=== PATIENT | male | born 1930 | race African-American/Black ===

== ENCOUNTER → 2017-03-24 | Outpatient (CLI) | payer MEDICARE ==
[2017-03-24 10:36] LABS: ANION GAP 7 (5-19); BLOOD UREA NITROGEN 15 mg/dL (7-20); CARBON DIOXIDE 29 mmol/L (22-30); CHLORIDE 103 mmol/L (98-107); CHOLESTEROL 166.94 mg/dL (0-200); CREATININE RESULT 0.91 mg/dL (0.52-1.25); Direct HDL 76 mg/dL (>40); GLUCOSE 83 mg/dL (75-110); POTASSIUM 4.6 mmol/L (3.6-5.0); SODIUM 139.4 mmol/L (137-145); TRIGLYCERIDES 57 mg/dL (<150)
[2017-03-24 10:47] LABS: DIRECT LDL 71 mg/dL (<100)
== END ==
LOC: OD 09:11
PROVIDERS: ATTEND Family Medicine
DX: I10 Essential (primary) hypertension (principal); R00.2 Palpitations; R97.20 Elevated prostate specific antigen [PSA]; Z79.899 Other long term (current) drug therapy
CPT/HCPCS: 36415; 80048; 80061; 83036; 84153; 84443

== ENCOUNTER → 2017-04-19 | Outpatient (CLI) | payer MEDICARE ==
--- NOTE | 2017-04-19 14:26 | RADIOLOGY REPORT (SQ) ---
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 RADIONUCLIDE AND DOSE: 20 millicuries Tc99m MDP. The route of agent administration: Intravenous. ADDITIONAL DRUGS AND DOSES: None. TECHNIQUE: Routine delayed images at 3 hours post radionuclide injection acquired of the bony skelet on including anterior and posterior whole-body projections and additional focused images as needed. LIMITATIONS: None. FINDINGS: BONES: A right knee arthroplasty is present. There is mild uptake in medial compartment o f the left knee that is degenerative. No lesions are seen in the skeleton that are suspicious for me tastases. KIDNEYS: Symmetric excretion without obstruction. OTHER: No other significant finding. IMPRESSION: There is no evidence of metastatic disease to bone. COMMENT: PQRS 3570F: Current bone scan is compared with any available plain radiographs, prior bone scans, and CT/MRI. TECHNICAL DOCUMENTATION: JOB ID: [id number]- All Rights Reserved
== END ==
LOC: RAD 10:00
PROVIDERS: ATTEND Urology
DX: C61 Malignant neoplasm of prostate (principal); N40.1 Benign prostatic hyperplasia with lower urinary tract symptoms; N39.41 Urge incontinence; R97.20 Elevated prostate specific antigen [PSA]
CPT/HCPCS: 78306; A9561; Q9969

== ENCOUNTER → 2017-08-25 | Outpatient (CLI) | payer MEDICARE ==
--- NOTE | 2017-08-25 11:45 | RADIOLOGY REPORT (SQ) ---
EXAM DESCRIPTION: L SPINE WHOLE COMPLETED DATE/TIME: 08/25/2017 11:01 am REASON FOR STUDY: LOW BACK PAIN (M54.5), PROSTATE CA (C61) C61 MALIGNANT NEOPLASM OF PROSTATE M54.5 LOW BACK PAIN COMPARISON: 05/04/2013 NUMBER OF VIEWS: Five views including obliques. TECHNIQUE: AP, lateral, oblique, and sacral radiographic images acquired of the lumbar spine. LIMITATIONS: None. FINDINGS: MINERALIZATION: Normal. SEGMENTATION: Normal. No transitional anatomy. ALIGNMENT: There is minimal, stable anterolisthesis of L4 on L5. VERTEBRAE: Maintained height. No fracture or worrisome bone lesion. DISCS: There is narrowing at L4-5. POSTERIOR ELEMENTS: Hypertrophic facet changes are present from L3-S1. HARDWARE: None in the spine. PARASPINAL SOFT TISSUES: Normal. PELVIS: Intact as visualized. No fractures or worrisome bone lesions. SI joints intact. OTHER: Bridging osteophytes is seen the lower thoracic spine. IMPRESSION: Mild grade 1 anterolisthesis of L4 on L5 that is stable. Degenerative disc disease. Sp ondylosis. Facet arthropathy TECHNICAL DOCUMENTATION: JOB ID: [id number] [employer]- All Rights Reserved
== END ==
LOC: RAD 10:29
PROVIDERS: ATTEND Family Medicine
DX: C61 Malignant neoplasm of prostate (principal); M54.5 Low back pain; M51.36 Other intervertebral disc degeneration, lumbar region; M47.896 Other spondylosis, lumbar region
CPT/HCPCS: 72110

== ENCOUNTER → 2017-11-08 | Outpatient (CLI) | payer MEDICARE, MEDICAID ==
--- NOTE | 2017-11-08 18:07 | RADIOLOGY REPORT (SQ) ---
EXAM DESCRIPTION: HIP BILATERAL COMPLETED DATE/TIME: 11/08/2017 5:44 pm REASON FOR STUDY: Pain in right hip, Lumbago with sciatica, right side COMPARISON: None. NUMBER OF VIEWS: Two views TECHNIQUE: AP pelvis and additional frog-leg view of both hips. LIMITATIONS: None. FINDINGS: MINERALIZATION: Normal. HIPS: Mild osteoarthritis. No acute fracture or dislocation. No worrisome bone lesions. PELVIS AND SACRUM: No acute fracture or dislocation. No worrisome bone lesions. PUBIS AND ISCHIUM: No acute fracture. LOWER LUMBAR SPINE: Degenerative change without fracture. SOFT TISSUES: No findings. OTHER: No other significant finding. IMPRESSION: DEGENERATIVE CHANGE WITHOUT FRACTURE. TECHNICAL DOCUMENTATION: JOB ID: [id number] [employer]- All Rights Reserved
== END ==
LOC: RAD 17:19
PROVIDERS: ATTEND Family Medicine
DX: M25.551 Pain in right hip (principal); M54.41 Lumbago with sciatica, right side
CPT/HCPCS: 73522

== ENCOUNTER 2017-12-14 14:51 | Inpatient (IN) | payer MEDICARE, MEDICAID ==
[2017-12-14 15:33] LABS: ALANINE AMINOTRANSFERASE 55 U/L (21-72); ALBUMIN 2.7 g/dL (3.5-5.0); ALKALINE PHOSPHATASE 170 U/L (38-126); ANION GAP 8 (5-19); ASPARTATE AMINO TRANSFERASE 85 U/L (17-59); BILIRUBIN,DIRECT 0.2 mg/dL (0.0-0.4); BILIRUBIN,TOTAL 0.2 mg/dL (0.2-1.3); BLOOD UREA NITROGEN 15 mg/dL (7-20); CALCIUM 8.6 mg/dL (8.4-10.2); CARBON DIOXIDE 27 mmol/L (22-30); CHLORIDE 104 mmol/L (98-107); CREATINE KINASE 95 U/L (55-170); GLUCOSE 110 mg/dL (75-110); POTASSIUM 3.7 mmol/L (3.6-5.0); TOTAL PROTEIN 5.9 g/dL (6.3-8.2)
--- NOTE | 2017-12-14 15:35 | ER Document Report ---
ED General - General Mode of Arrival: Medic Information source: Patient, Relative TRAVEL OUTSIDE OF THE [place] IN LAST 30 DAYS: No <COLBY STALEY - Last Filed: 12/14/17 22:19> <JOVANNA GUZMAN - Last Filed: 12/19/17 06:57> - General Chief Complaint: Syncope Stated Complaint: SYNCOPE Time Seen by Provider: 12/14/17 15:15 Notes: Patient is a 87 year old male with a history of hypertension presents to the emergency department via EMS accompanied by son due to a syncopal episode. Son states the patient was receiving a hair cut when he had a syncopal episode further stating the patient slumped over in the chair. Patient denies any light headedness, nausea, diaphoresis, chest pain, heart palpitations or shortness of breath before the syncopal episode. Son states the patient had a syncopal episode one time before. At bedside, son states the patient appears groggy. Patient denies a history of stroke, [place] or seizures. Son states the patient took his hypertension medications this morning. (COLBY STALEY) - Related Data Allergies/Adverse Reactions: No Known Drug Allergies Allergy (Verified 09/01/14 12:58) Past Medical History - General Information source: Patient, Relative - Social History Smoking Status: Unknown if Ever Smoked Family History: Hypertension - Past Medical History Cardiac Medical History: Reports: Hx Hypertension - Immunizations Hx Diphtheria, Pertussis, Tetanus Vaccination: No - unknown <COLBY STALEY - Last Filed: 12/14/17 22:19> Review of Systems - Review of Systems Constitutional: No symptoms reported EENT: No symptoms reported Cardiovascular: No symptoms reported Respiratory: No symptoms reported Gastrointestinal: No symptoms reported Genitourinary: No symptoms reported Male Genitourinary: No symptoms reported Musculoskeletal: No symptoms reported Skin: No symptoms reported Hematologic/Lymphatic: No symptoms reported Neurological/Psychological: See HPI, Lost consciousness -: Yes All other systems reviewed and negative <COLBY STALEY - Last Filed: 12/14/17 22:19> Physical Exam <COLBY STALEY - Last Filed: 12/14/17 22:19> <JOVANNA GUZMAN - Last Filed: 12/19/17 06:57> - Vital signs Vitals: Pulse Ox 97 12/14/17 15:10 - Notes Notes: GENERAL: Alert, appears fatigued. HEAD: Normocephalic, atraumatic. EYES: Pupils equal, round, and reactive to light. Extraocular movements intact. ENT: Oral mucosa moist, tongue midline. NECK: Full range of motion. Supple. Trachea midline. LUNGS: Clear to auscultation bilaterally, no wheezes, rales, or rhonchi. No respiratory distress. HEART: Systolic murmur. No gallops or rubs. ABDOMEN: Soft, non-tender. Non-distended. Bowel sounds present in all 4 quadrants. EXTREMITIES: Moves all 4 extremities spontaneously. 2+ radial pulses. NEUROLOGICAL: Alert and oriented x3. Normal speech. PSYCH: Normal affect, normal mood. SKIN: Warm, dry, normal turgor. No rashes or lesions noted. RECTAL: Brown stool. (COLBY STALEY) Course - Laboratory Result Diagrams: 12/14/17 14:31 12/14/17 14:31 - Consults Dr. Galarza Time consulted: 18:11 - Accepts patient for admission. <COLBY STALEY - Last Filed: 12/14/17 22:19> - Laboratory Result Diagrams: 12/19/17 04:59 12/18/17 05:41 - EKG Interpretation by Pr EKG shows normal: Sinus rhythm Rate: Normal Rhythm: NSR [place]/QRS: RBBB When compared to previous EKG there are: No significant change <JOVANNA GUZMAN - Last Filed: 12/19/17 06:57> - Vital Signs Vital signs: Temp Pulse Resp BP Pulse Ox 98.6 F 80 18 141/81 H 93 12/19/17 04:04 12/19/17 04:04 12/19/17 04:04 12/19/17 04:04 12/19/17 04:04 - Laboratory Laboratory results interpreted by ar: 12/14/17 12/14/17 12/14/17 14:31 14:31 14:31 RBC 4.14 L Hgb 6.7 L Hct 23.6 L MCV 57 L MCH 16.1 L MCHC 28.2 L RDW 21.1 H Plt Count 531 H Seg Neuts % (Manual) 79 H Lymphocytes % (Manual) 10 L Iron < 10.1 L Ferritin 5.30 L AST 85 H Alkaline Phosphatase 170 H Total Protein 5.9 L Albumin 2.7 L Vitamin B12 > 1000.0 H Crossmatch 12/14/17 17:09 RBC Hgb Hct MCV MCH MCHC RDW Plt Count Seg Neuts % (Manual) Lymphocytes % (Manual) Iron Ferritin AST Alkaline Phosphatase Total Protein Albumin Vitamin B12 Crossmatch See Detail Discharge - Discharge Admitting Provider: [facility] Admitted: Telemetry <COLBY STALEY - Last Filed: 12/14/17 22:19> <JOVANNA GUZMAN - Last Filed: 12/19/17 06:57> - Discharge Clinical Impression: Syncope Qualifiers: Syncope type: unspecified Qualified Code(s): R55 - Syncope and collapse Anemia Qualifiers: Anemia type: iron deficiency Iron deficiency anemia type: unspecified iron deficiency Qualified Code(s): D50.9 - Iron deficiency anemia, unspecified Condition: Stable Disposition: ADMITTED INPATIENT Scribe Attestation: 12/19/17 06:57 I personally performed the services described in the documentation, reviewed and edited the documentation which was dictated to the scribe in my presence, and it accurately records my words and actions. (JOVANNA GUZMAN) Scribe Documentation - Scribe Written by Giuliana:: Giuliana Perez, 12/14/2017 15:52 acting as scribe for :: Jimbo <COLBY STALEY - Last Filed: 12/14/17 22:19>
[2017-12-14 15:36] LABS: HEMATOCRIT 23.6 % (37.9-51.0); MEAN CORPUSCULAR HEMOGLOBIN 16.1 pg (27.0-33.4); MEAN CORPUSCULAR HGB CONC 28.2 g/dL (32.0-36.0); PLATELET COUNT 531 10^3/uL (150-450); RED BLOOD COUNT 4.14 10^6/uL (4.35-5.55); RED CELL DISTRIBUTION WIDTH 21.1 % (11.5-14.0)
[2017-12-14 15:44] LABS: HEMOGLOBIN 6.7 g/dL (13.5-17.0)
[2017-12-14 15:45] LABS: CREATINE KINASE MB 0.97 ng/mL (<4.55); MEAN CORPUSCULAR VOLUME 57 fl (80-97)
[2017-12-14 15:46] LABS: TROPONIN I < 0.012 ng/mL
[2017-12-14 15:53] LABS: ABSOLUTE NEUTROPHILS# (MANUAL) 7.9 10^3/uL (1.7-8.2); ANISOCYTOSIS 2+; BASOPHILS % (MANUAL) 1 % (0-2); EOSINOPHILS % (MANUAL) 0 % (0-6); HYPOCHROMASIA 2+; LYMPHOCYTES % (MANUAL) 10 % (13-45); MONOCYTES % (MANUAL) 10 % (3-13); PLATELET COMMENT INCREASED; PLATELET LARGE PRESENT; POLYCHROMASIA SLIGHT; ROULEAUX SLIGHT; SEGMENTED NEUTROPHILS % (MAN) 79 % (42-78); TARGET CELLS SLIGHT; TOTAL CELLS COUNTED 100
[2017-12-14 16:36] LABS: ABSOLUTE RETICS # 0.071 10^6/uL (0.028-0.122); RETICULOCYTE COUNT (AUTO) 1.69 % (0.66-2.85)
--- NOTE | 2017-12-14 16:49 | RADIOLOGY REPORT (SQ) ---
EXAM DESCRIPTION: CT HEAD WITHOUT COMPLETED DATE/TIME: 12/14/2017 4:35 pm REASON FOR STUDY: SYNCOPE COMPARISON: 08/19/2016 TECHNIQUE: Axial images acquired through the brain without intravenous contrast. Images reviewed wi th bone, brain and subdural windows. Additional sagittal and coronal reconstructions were generated. Images stored on PACS. All CT scanners at this facility use dose modulation, iterative reconstruction, and/or weight based d osing when appropriate to reduce radiation dose to as low as reasonably achievable (ALARA). [facility]: Dose Right [facility]: CareDose [facility]: Dose Right [facility]: Teradose 4D [facility]: Smart Symphony RADIATION DOSE: CT Rad equipment meets quality standard of care and radiation dose reduction techniq ues were employed. CTDIvol: 53.2 mGy. DLP: 937 mGy-cm. mGy. LIMITATIONS: None. FINDINGS: VENTRICLES: Prominent ventricles secondary to involutional atrophy. CEREBRUM: Mild cortical atrophy. No masses. No hemorrhage. No midline shift. No evidence for acut e infarction. Few scattered areas of low density in the white matter most likely chronic small vessel ischemic changes. CEREBELLUM: No masses. No hemorrhage. No alteration of density. No evidence for acute infarction. EXTRAAXIAL SPACES: No fluid collections. No masses. ORBITS AND GLOBE: No intra- or extraconal masses. Normal contour of globe without masses. CALVARIUM: No fracture. PARANASAL SINUSES: No fluid or mucosal thickening. SOFT TISSUES: No mass or hematoma. OTHER: No other significant finding. IMPRESSION: MILD CHRONIC MICROVASCULAR ISCHEMIA. NO ACUTE IMAGING FINDINGS IN THE BRAIN. EVIDENCE OF ACUTE STROKE: NO. COMMENT: Quality ID # [id number]: Final reports with documentation of one or more dose reduction techniques (e.g., Automated exposure control, adjustment of the mA and/or kV according to patient size, use of iterative reconstruction technique) TECHNICAL DOCUMENTATION: JOB ID: [id number] [employer]- All Rights Reserved Reading location - IP/workstation name: [email or web address]
[2017-12-14 17:28] LABS: FOLATE 5.96 ng/mL (>2.76)
[2017-12-14 17:38] LABS: IRON(TIBC) < 10.1 ug/dL (49-181)
[2017-12-14] MEDS ORDERED: OXYCODONE-ACETAMINOPHEN 5-325 MG TABLET PO PRN ×2 (18:14→18:39)
[2017-12-14] MEDS ORDERED: ACETAMINOPHEN 325 MG TABLET PO PRN ×2 (18:14→18:39)
[2017-12-14] MEDS ORDERED: ONDANSETRON HCL INJ/PF 4 MG/2 ML SDV IV PRN (18:14)
[2017-12-14] MEDS ORDERED: NORMAL SALINE 250 ML IV PRN ×2 (18:36)
--- NOTE | 2017-12-14 18:55 | PDOC H&P ---
History of Present Illness Admission Date/PCP: CARMINE GODFREY MD Patient complains of: Syncopal episode while getting haircut History of Present Illness: MOI SANCHEZ JR is a 87 year old male Patient was brought to the emergency room by his son apparently after having a syncopal episode while he was at the [facility]. Patient denies any dizziness nausea vomiting diaphoresis chest pain palpitations or any other pertinent symptoms patient and his son a pretty poor historians and I am unable to really get meaningful information from them. They denied any known history of a prior anemia and denies any known history of GI malignancy. He apparently does have a history of prostate cancer however from what they tell me he is not been treated. He also had a colonoscopy about 4 years ago and they tell me that it was negative. There is no history of bloody stool, abdominal pain, weight loss , vomiting blood or any other pertinent symptoms. Patient was found to have a hemoglobin of 6.7 in the emergency room and stool guaiac done was negative. His iron studies less than 10 while his ferritin is also low. Also has some significant disease with MCV of 57. Platelet count is at 531 which was suggest iron deficiency anemia Past Medical History Cardiac Medical History: Reports: Hypertension Pulmonary Medical History: Denies: Tuberculosis Past Surgical History Past Surgical History: Denies: Pacemaker Social History Information Source: Patient Smoking Status: Unknown if Ever Smoked Frequency of Alcohol Use: None Hx Recreational Drug Use: No Hx Prescription Drug Abuse: No Family History Family History: Hypertension Parental Family History Reviewed: No Children Family History Reviewed: Unknown Sibling(s) Family History Reviewed.: Unknown Medication/Allergy Home Medications: Lisinopril [Prinivil 20 mg Tablet] 20 mg PO Q12 09/20/12 Donepezil HCl 5 mg PO DAILY 08/31/14 Hydrocodone/Ibuprofen [Reprexain 7.5-200 Mg Tablet] 1 each PO TID PRN 08/31/14 Ergocalciferol (Vitamin D2) [Drisdol] 50,000 unit PO [id number] 09/06/14 Vit B12/Lm-Folate Ca/Vit B6/B2 [Enfolast Tablet] 1 each PO BID 09/06/14 Diltiazem HCl [Cardizem 60 mg Tablet] 60 mg PO Q8 #0 tablet 09/10/14 Hydralazine HCl [Apresoline 50 mg Tablet] 50 mg PO Q8 #0 tablet 09/10/14 Metoprolol Succinate [Toprol Xl] 25 mg PO BID #0 09/10/14 Nitrofurantoin/Nitrofuran Mac [Macrobid 100 mg Capsule] 100 mg PO BID #20 capsule 08/19/16 Allergies/Adverse Reactions: No Known Drug Allergies Allergy (Verified 09/01/14 12:58) Review of Systems All systems: reviewed and no additional remarkable complaints except as stated Cardiovascular: ABSENT: chest pain, orthropnea, palpitations Gastrointestinal: ABSENT: abdominal pain, coffee ground emesis, diarrhea, hematemesis, hematochezia, melena, nausea, vomiting Physical Exam Vital Signs: Temp Pulse Resp BP Pulse Ox 115/62 96 12/14/17 16:00 12/14/17 16:01 General appearance: PRESENT: no acute distress, other - elderly and frail Head exam: PRESENT: atraumatic Eye exam: PRESENT: other - pale Ear exam: PRESENT: normal external ear exam Neck exam: ABSENT: carotid bruit, JVD, lymphadenopathy, thyromegaly Cardiovascular exam: PRESENT: RRR. ABSENT: diastolic murmur, rubs, systolic murmur Pulses: PRESENT: normal dorsalis pedis pul GI/Abdominal exam: PRESENT: normal bowel sounds, soft. ABSENT: distended, guarding, mass, organolmegaly, rebound, tenderness Rectal exam: PRESENT: heme (-) stool Extremities exam: PRESENT: full ROM. ABSENT: calf tenderness, clubbing, pedal edema Musculoskeletal exam: PRESENT: ambulatory - with walker Neurological exam: PRESENT: alert, awake, oriented to person, oriented to place , oriented to time Psychiatric exam: PRESENT: flat affect Results Laboratory Results: 12/14/17 14:31 12/14/17 14:31 12/14/17 12/14/17 12/14/17 14:31 14:31 14:31 WBC 10.0 RBC 4.14 L Hgb 6.7 L Hct 23.6 L MCV 57 L MCH 16.1 L MCHC 28.2 L RDW 21.1 H Plt Count 531 H Seg Neutrophils % Not Reportable Lymphocytes % Not Reportable Monocytes % Not Reportable Eosinophils % Not Reportable Basophils % Not Reportable Absolute Neutrophils Not Reportable Absolute Lymphocytes Not Reportable Absolute Monocytes Not Reportable Absolute Eosinophils Not Reportable Absolute Basophils Not Reportable Retic Count (auto) Absolute Retic Sodium 139.0 Potassium 3.7 Chloride 104 Carbon Dioxide 27 Anion Gap 8 BUN 15 Creatinine 0.80 Est GFR ( Amer) > 60 Est GFR (Non-Af Amer) > 60 Glucose 110 Calcium 8.6 Magnesium 1.8 Iron TIBC % Saturation Ferritin Total Bilirubin 0.2 AST 85 H ALT 55 Alkaline Phosphatase 170 H Total Protein 5.9 L Albumin 2.7 L Vitamin B12 Folate Stool Occult Blood Blood Type Antibody Screen 12/14/17 12/14/17 12/14/17 14:31 14:31 16:10 WBC RBC Hgb Hct MCV MCH MCHC RDW Plt Count Seg Neutrophils % Lymphocytes % Monocytes % Eosinophils % Basophils % Absolute Neutrophils Absolute Lymphocytes Absolute Monocytes Absolute Eosinophils Absolute Basophils Retic Count (auto) 1.69 Absolute Retic 0.071 Sodium Potassium Chloride Carbon Dioxide Anion Gap BUN Creatinine Est GFR ( Amer) Est GFR (Non-Af Amer) Glucose Calcium Magnesium Iron < 10.1 L TIBC 257 % Saturation UNABLE TO CALCULATE Ferritin 5.30 L Total Bilirubin AST ALT Alkaline Phosphatase Total Protein Albumin Vitamin B12 > 1000.0 H Folate 5.96 Stool Occult Blood NEGATIVE Blood Type Antibody Screen 12/14/17 17:09 WBC RBC Hgb Hct MCV MCH MCHC RDW Plt Count Seg Neutrophils % Lymphocytes % Monocytes % Eosinophils % Basophils % Absolute Neutrophils Absolute Lymphocytes Absolute Monocytes Absolute Eosinophils Absolute Basophils Retic Count (auto) Absolute Retic Sodium Potassium Chloride Carbon Dioxide Anion Gap BUN Creatinine Est GFR ( Amer) Est GFR (Non-Af Amer) Glucose Calcium Magnesium Iron TIBC % Saturation Ferritin Total Bilirubin AST ALT Alkaline Phosphatase Total Protein Albumin Vitamin B12 Folate Stool Occult Blood Blood Type A POSITIVE Antibody Screen NEGATIVE 12/14/17 12/14/17 14:31 14:31 Creatine Kinase 95 CK-MB (CK-2) 0.97 Troponin I < 0.012 Impressions: Head CT 12/14/17 15:34 IMPRESSION: MILD CHRONIC MICROVASCULAR ISCHEMIA. NO ACUTE IMAGING FINDINGS IN THE BRAIN. EVIDENCE OF ACUTE STROKE: NO. Assessment & Plan - Diagnosis (1) Anemia Qualifiers: Anemia type: unspecified type Qualified Code(s): D64.9 - Anemia, unspecified Is this a current diagnosis for this admission?: Yes Plan: This is likely a chronic anemia given his indices and severe iron deficiency. Plan is to transfuse him with 2 units PRBC. Will likely need further studies including CT abdomen and pelvis and GI consult if warranted however will defer these for now and can reeval in am. He will also need Iron transfusion at one point. Patient also has h/o Prostrate Cancer so this may be related to the severe anemia There is also no azotemia supporting the fact that this is likely chronic. Reactive thrombocytosis also support this. Patient's last hemoglobin in the computer records was in 2016 at that time his hemoglobin was 12 (2) Syncope Qualifiers: Syncope type: unspecified Qualified Code(s): R55 - Syncope and collapse Is this a current diagnosis for this admission?: Yes Plan: This is secondary to the severe anemia. At this point I see no indication for any further cardiac workup as his syncope can be explained by the anemia. Will defer ordering any other test for now (3) Dementia Qualifiers: Dementia type: Alzheimer's disease Is this a current diagnosis for this admission?: Yes - Time Time Spent: 30 to 50 Minutes Medications reviewed and adjusted accordingly: Yes Anticipated discharge: Home Within: within 48 hours - Inpatient Certification Based on my medical assessment, after consideration of the patient's comorbidities, presenting symptoms, or acuity I expect that the services needed warrant INPATIENT care.: Yes Medical Necessity: Other - Need for blood transfusion
--- NOTE | 2017-12-14 19:22 | EKG REPORT ---
SEVERITY:- ABNORMAL ECG - SINUS RHYTHM RIGHT BUNDLE BRANCH BLOCK : Confirmed by: Tramaine Ohara MD 14-Dec-2017 19:21:47
[2017-12-14] MEDS: FAMOTIDINE INJ/PF 20 MG/2 ML SDV IV SCH (23:18)
[2017-12-15 07:05] LABS: HEMATOCRIT 27.9 % (37.9-51.0); HEMOGLOBIN 8.5 g/dL (13.5-17.0); MEAN CORPUSCULAR HEMOGLOBIN 18.8 pg (27.0-33.4); MEAN CORPUSCULAR HGB CONC 30.4 g/dL (32.0-36.0); PLATELET COUNT 404 10^3/uL (150-450); RED BLOOD COUNT 4.51 10^6/uL (4.35-5.55); RED CELL DISTRIBUTION WIDTH 28.3 % (11.5-14.0)
[2017-12-15 07:11] LABS: BLOOD UREA NITROGEN 15 mg/dL (7-20); CALCIUM 8.5 mg/dL (8.4-10.2); CHLORIDE 104 mmol/L (98-107); GLUCOSE 79 mg/dL (75-110)
[2017-12-15 07:25] LABS: ANION GAP 5 (5-19); CARBON DIOXIDE 30 mmol/L (22-30); POTASSIUM 3.5 mmol/L (3.6-5.0); SODIUM 138.5 mmol/L (137-145)
[2017-12-15 07:45] LABS: MEAN CORPUSCULAR VOLUME 62 fl (80-97)
[2017-12-15 07:47] LABS: ABSOLUTE MONOCYTES # (MANUAL) 1.4 10^3/uL (0.1-1.4); ABSOLUTE NEUTROPHILS# (MANUAL) 8.6 10^3/uL (1.7-8.2); BASOPHILS % (MANUAL) 0 % (0-2); EOSINOPHILS % (MANUAL) 0 % (0-6); LYMPHOCYTES % (MANUAL) 9 % (13-45); MONOCYTES % (MANUAL) 13 % (3-13); SEGMENTED NEUTROPHILS % (MAN) 78 % (42-78); TOTAL CELLS COUNTED 100
[2017-12-15 07:48] LABS: HYPOCHROMASIA 3+; POLYCHROMASIA SLIGHT; TOXIC VACUOLATION PRESENT
[2017-12-15 07:49] LABS: ANISOCYTOSIS 3+; PLATELET COMMENT ADEQUATE; SCHISTOCYTES SLIGHT; TARGET CELLS 1+
[2017-12-15] MEDS: FAMOTIDINE INJ/PF 20 MG/2 ML SDV IV SCH ×2 (09:37→22:51)
[2017-12-15 10:14] LABS: PATH REVIEW PATHOLOGIST REVIEWED
--- NOTE | 2017-12-15 17:03 | PDOC PROGRESS REPORT ---
Subjective Progress Note for:: 12/15/17 Subjective:: Feeling better today, no to diet. No chest pain or shortness of breath or palpitations. Son at bedside. States he has prostate cancer and undergone a workup, including abdomen and pelvis CT. Patient has intermittent problems with constipation. Reason For Visit: SYNCOPE ANEMIA Physical Exam Vital Signs: Temp Pulse Resp BP Pulse Ox 99.0 F 66 19 153/89 H 95 12/15/17 16:23 12/15/17 16:23 12/15/17 16:23 12/15/17 16:23 12/15/17 16:23 Intake & Output 12/14/17 12/15/17 12/16/17 06:59 06:59 06:59 Intake Total 650 739 Balance 650 739 Weight 34.2 kg 42.4 kg GEN: NAD, well-developed, well-nourished CV: RRR, NL S1S2 LUNGS: CTA bilaterally ABDOMEN Soft, NT, +BS EXTERMITIES: No e/c/c NEURO: Alert, oriented 3, no lateralizing weakness Results Laboratory Results: 12/15/17 06:36 12/15/17 06:36 12/15/17 12/15/17 06:36 06:36 WBC 11.0 H RBC 4.51 Hgb 8.5 L Hct 27.9 L MCV 62 L D MCH 18.8 L MCHC 30.4 L RDW 28.3 H Plt Count 404 Seg Neutrophils % Not Reportable Lymphocytes % Not Reportable Monocytes % Not Reportable Eosinophils % Not Reportable Basophils % Not Reportable Absolute Neutrophils Not Reportable Absolute Lymphocytes Not Reportable Absolute Monocytes Not Reportable Absolute Eosinophils Not Reportable Absolute Basophils Not Reportable Sodium 138.5 Potassium 3.5 L Chloride 104 Carbon Dioxide 30 Anion Gap 5 BUN 15 Creatinine 0.59 Est GFR ( Amer) > 60 Est GFR (Non-Af Amer) > 60 Glucose 79 Calcium 8.5 Impressions: Head CT 12/14/17 15:34 IMPRESSION: MILD CHRONIC MICROVASCULAR ISCHEMIA. NO ACUTE IMAGING FINDINGS IN THE BRAIN. EVIDENCE OF ACUTE STROKE: NO. Assessment & Plan - Diagnosis (1) Anemia Qualifiers: Anemia type: unspecified type Qualified Code(s): D64.9 - Anemia, unspecified Is this a current diagnosis for this admission?: Yes Plan: Assessment this is secondary to iron deficiency and/or chronic disease. H&H improved with 2 units packed red blood cells. We will follow-up CBC in a.m. Patient reports never having had colonoscopy. He will need GI evaluation. No GI availability inpatient at this time. Will check abdominal pelvic CT to rule out metastatic lesion, given history of prostate cancer. (2) Syncope Qualifiers: Syncope type: unspecified Qualified Code(s): R55 - Syncope and collapse Is this a current diagnosis for this admission?: Yes Plan: Likely secondary to anemia. Continue to observe. (3) Dementia Qualifiers: Dementia type: Alzheimer's disease Is this a current diagnosis for this admission?: Yes Plan: Appears mild to moderate, stable.
[2017-12-15] MEDS ORDERED: DONEPEZIL HCL 5 MG TABLET PO ONE (18:15)
--- NOTE | 2017-12-15 20:47 | RADIOLOGY REPORT (SQ) ---
EXAM DESCRIPTION: CT ABD/PELVIS WITH IV ORAL COMPLETED DATE/TIME: 12/15/2017 8:29 pm REASON FOR STUDY: Severe anemia, abd pain, h/o prostate CA COMPARISON: None. TECHNIQUE: CT scan of the abdomen and pelvis performed using helical scanning technique with dynamic intravenous contrast injection. Oral contrast. Images reviewed with lung, soft tissue, and bone win dows. Reconstructed coronal and sagittal MPR images reviewed. Delayed images for evaluation of the ur inary system also acquired. All images stored on PACS. All CT scanners at this facility use dose modulation, iterative reconstruction, and/or weight based d osing when appropriate to reduce radiation dose to as low as reasonably achievable (ALARA). [facility]: Dose Right [facility]: CareDose [facility]: Dose Right [facility]: Teradose 4D [facility]: Mobui CONTRAST TYPE AND DOSE: contrast/concentration: Isovue mg/ml; Total Contrast Delivered: 45.0 ml; To zohreh Saline Delivered: 35.0 ml RENAL FUNCTION: BUN 15 creatinine 0.56 RADIATION DOSE: CT Rad equipment meets quality standard of care and radiation dose reduction techniq ues were employed. CTDIvol: 11.4 - 16.0 mGy. DLP: 1475 mGy-cm.. LIMITATIONS: None. FINDINGS: LOWER CHEST: A densely calcified granuloma is present in the right lung. There is a minim al right pleural effusion. LIVER: There is is 13 cm heterogeneous mass involving the right lobe of the liver. A 4 cm low-densit y mass lies anterior to the larger mass. The larger mass actually has an appearance suggesting confl uent smaller masses. SPLEEN: Normal size. No focal lesions. PANCREAS: No masses. No significant calcifications. No adjacent inflammation or peripancreatic fluid collections. Pancreatic duct not dilated. GALLBLADDER: No identified stones by CT criteria. No inflammatory changes to suggest cholecystitis. ADRENAL GLANDS: No significant masses or asymmetry. RIGHT KIDNEY AND URETER: No solid masses. No significant calcifications. No hydronephrosis or hyd roureter. LEFT KIDNEY AND URETER: No solid masses. No significant calcifications. No hydronephrosis or hydr oureter. AORTA AND VESSELS: No aneurysm. No dissection. Renal arteries, SMA, celiac without stenosis. RETROPERITONEUM: There are scattered small mesenteric nodes. BOWEL AND PERITONEAL CAVITY: No bowel mass is appreciated. No free fluid is appreciated. APPENDIX: Not identified. PELVIS: No mass. No free fluid. Normal bladder. ABDOMINAL WALL: There is a left inguinal hernia containing a loop of sigmoid colon. BONES: No significant or acute findings. OTHER: No other significant finding. IMPRESSION: 1. Findings in the lower chest as described. 2. Hepatic masses. 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 3. Small nonspecific mesenteric lymph nodes. 4. Prominent left inguinal hernia containing a loop of sigmoid colon. TECHNICAL DOCUMENTATION: JOB ID: [id number] Quality ID # [id number]: Final reports with documentation of one or more dose reduction techniques (e.g., Au tomated exposure control, adjustment of the mA and/or kV according to patient size, use of iterative reconstruction technique) 2010 [employer]- All Rights Reserved Reading location - IP/workstation name: [email or web address]
[2017-12-16 05:14] LABS: ABSOLUTE EOSINOPHILS # (AUTO) 0.1 10^3/uL (0.0-0.6); ABSOLUTE LYMPHOCYTES (AUTO) 1.1 10^3/uL (0.5-4.7); ABSOLUTE MONOCYTES (AUTO) 2.8 10^3/uL (0.1-1.4); ABSOLUTE NEUT (AUTO) 10.1 10^3/uL (1.7-8.2); BASOPHILS % (AUTO) 0.3 % (0-2); EOSINOPHILS % (AUTO) 0.9 % (0-6); LYMPHOCYTES % (AUTO) 7.5 % (13-45); MEAN CORPUSCULAR HEMOGLOBIN 18.5 pg (27.0-33.4); MEAN CORPUSCULAR HGB CONC 29.6 g/dL (32.0-36.0); MEAN CORPUSCULAR VOLUME 62 fl (80-97); MONOCYTES % (AUTO) 19.9 % (3-13); PLATELET COUNT 385 10^3/uL (150-450); RED BLOOD COUNT 4.34 10^6/uL (4.35-5.55); RED CELL DISTRIBUTION WIDTH 27.9 % (11.5-14.0); SEGMENTED NEUTROPHILS % (AUTO) 71.4 % (42-78); TOTAL CELLS COUNTED % (AUTO) 100 %; WHITE BLOOD COUNT 14.1 10^3/uL (4.0-10.5)
[2017-12-16 05:31] LABS: ALANINE AMINOTRANSFERASE 60 U/L (21-72); ALBUMIN 2.7 g/dL (3.5-5.0); ALKALINE PHOSPHATASE 178 U/L (38-126); ASPARTATE AMINO TRANSFERASE 99 U/L (17-59); BILIRUBIN,DIRECT 0.3 mg/dL (0.0-0.4); BILIRUBIN,TOTAL 0.5 mg/dL (0.2-1.3); BLOOD UREA NITROGEN 10 mg/dL (7-20); CALCIUM 8.3 mg/dL (8.4-10.2); CARBON DIOXIDE 33 mmol/L (22-30); GLUCOSE 77 mg/dL (75-110); POTASSIUM 3.4 mmol/L (3.6-5.0); TOTAL PROTEIN 5.9 g/dL (6.3-8.2)
[2017-12-16 05:36] LABS: CHLORIDE 103 mmol/L (98-107); SODIUM 137.8 mmol/L (137-145)
[2017-12-16 05:37] LABS: ANION GAP 2 (5-19)
[2017-12-16 05:41] LABS: TOXIC GRANULATION SLIGHT
[2017-12-16 05:42] LABS: ANISOCYTOSIS 4+; BURR CELLS SLIGHT; HYPOCHROMASIA 2+; PLATELET CLUMPS PRESENT; PLATELET COMMENT ADEQUATE; POLYCHROMASIA 1+; SCHISTOCYTES SLIGHT; TARGET CELLS 1+
[2017-12-16] MEDS: POLYETHYLENE GLYCOL 3350 POWDER 17 GM/1 PACKET PO SCH ×2 (10:53→10:55)
[2017-12-16] MEDS: FAMOTIDINE INJ/PF 20 MG/2 ML SDV IV SCH ×2 (10:54→21:13)
[2017-12-16] MEDS: FERROUS SULFATE 325 MG TABLET PO SCH ×2 (10:54→17:07)
[2017-12-16] MEDS: DONEPEZIL HCL 5 MG TABLET PO SCH (10:55)
[2017-12-16] MEDS: DOCUSATE SODIUM 100 MG CAPSULE PO SCH ×2 (10:55→17:07)
--- NOTE | 2017-12-16 19:40 | PDOC PROGRESS REPORT ---
Subjective Progress Note for:: 12/16/17 Subjective:: Feeling better today, no recurrent syncope. No chest pain or shortness of breath or palpitations. Son at bedside. Denies rectal bleeding. Has problems with constipation usually. Reason For Visit: SYNCOPE ANEMIA Physical Exam Vital Signs: Temp Pulse Resp BP Pulse Ox 98.5 F 95 12 171/85 H 92 12/16/17 11:27 12/16/17 14:00 12/16/17 11:27 12/16/17 11:27 12/16/17 11:27 Intake & Output 12/15/17 12/16/17 12/17/17 06:59 06:59 06:59 Intake Total 650 741 0 Balance 650 741 0 Weight 34.2 kg 42.4 kg GEN: NAD, well-developed, well-nourished CV: RRR, NL S1S2 LUNGS: CTA bilaterally ABDOMEN Soft, NT, +BS EXTERMITIES: No e/c/c NEURO: Alert, oriented 3, no lateralizing weakness Results Laboratory Results: 12/16/17 04:09 12/16/17 04:09 12/16/17 12/16/17 04:09 04:09 WBC 14.1 H RBC 4.34 L Hgb 8.0 L Hct 27.0 L MCV 62 L MCH 18.5 L MCHC 29.6 L RDW 27.9 H Plt Count 385 Seg Neutrophils % 71.4 Lymphocytes % 7.5 L Monocytes % 19.9 H Eosinophils % 0.9 Basophils % 0.3 Absolute Neutrophils 10.1 H Absolute Lymphocytes 1.1 Absolute Monocytes 2.8 H Absolute Eosinophils 0.1 Absolute Basophils 0.0 Sodium 137.8 Potassium 3.4 L Chloride 103 Carbon Dioxide 33 H Anion Gap 2 L BUN 10 Creatinine 0.57 Est GFR ( Amer) > 60 Est GFR (Non-Af Amer) > 60 Glucose 77 Calcium 8.3 L Total Bilirubin 0.5 AST 99 H ALT 60 Alkaline Phosphatase 178 H Total Protein 5.9 L Albumin 2.7 L Impressions: Head CT 12/14/17 15:34 IMPRESSION: MILD CHRONIC MICROVASCULAR ISCHEMIA. NO ACUTE IMAGING FINDINGS IN THE BRAIN. EVIDENCE OF ACUTE STROKE: NO. Abdomen/Pelvis CT 12/15/17 00:00 IMPRESSION: 1. Findings in the lower chest as described. 2. Hepatic masses. 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 3. Small nonspecific mesenteric lymph nodes. 4. Prominent left inguinal hernia containing a loop of sigmoid colon. Assessment & Plan - Diagnosis (1) Anemia Qualifiers: Anemia type: unspecified type Qualified Code(s): D64.9 - Anemia, unspecified Is this a current diagnosis for this admission?: Yes Plan: Suspect this is secondary to iron deficiency and/or chronic disease. H&H improved with 2 units packed red blood cells, but decreased slightly today. We will continue to trend CBC. Patient reports never having had colonoscopy. Abdominal and pelvic CT result noted--liver lesions described. Will check PSA. Consider oncology consult. (2) Syncope Qualifiers: Syncope type: unspecified Qualified Code(s): R55 - Syncope and collapse Is this a current diagnosis for this admission?: Yes Plan: Likely secondary to anemia. Continue to monitor. (3) Dementia Qualifiers: Dementia type: Alzheimer's disease Is this a current diagnosis for this admission?: Yes Plan: Appears mild to moderate, stable. (4) Hypertension Is this a current diagnosis for this admission?: Yes Plan: BPs running high. Will restart home meds. Continue to monitor. (5) Hypokalemia Is this a current diagnosis for this admission?: Yes Plan: Replete potassium, follow-up Chem-7 level in a.m. - Time Time Spent with patient: 35 or more minutes
[2017-12-16] MEDS ORDERED: TRAZODONE HCL 50 MG TABLET PO ONE (21:00)
[2017-12-16] MEDS: AMLODIPINE BESYLATE 5 MG TABLET PO SCH (21:13)
[2017-12-17 07:11] LABS: HEMOGLOBIN 9.1 g/dL (13.5-17.0); MEAN CORPUSCULAR HEMOGLOBIN 18.3 pg (27.0-33.4); MEAN CORPUSCULAR HGB CONC 29.2 g/dL (32.0-36.0); MEAN CORPUSCULAR VOLUME 63 fl (80-97); PLATELET COUNT 375 10^3/uL (150-450); RED BLOOD COUNT 4.94 10^6/uL (4.35-5.55); RED CELL DISTRIBUTION WIDTH 28.5 % (11.5-14.0); WHITE BLOOD COUNT 13.3 10^3/uL (4.0-10.5)
[2017-12-17 07:24] LABS: ALANINE AMINOTRANSFERASE 66 U/L (21-72); ALKALINE PHOSPHATASE 214 U/L (38-126); ASPARTATE AMINO TRANSFERASE 104 U/L (17-59); BILIRUBIN,DIRECT 0.3 mg/dL (0.0-0.4); BILIRUBIN,TOTAL 0.6 mg/dL (0.2-1.3); BLOOD UREA NITROGEN 10 mg/dL (7-20); CALCIUM 8.7 mg/dL (8.4-10.2); GLUCOSE 90 mg/dL (75-110); POTASSIUM 3.7 mmol/L (3.6-5.0); TOTAL PROTEIN 6.2 g/dL (6.3-8.2)
[2017-12-17 07:33] LABS: CARBON DIOXIDE 35 mmol/L (22-30); CHLORIDE 99 mmol/L (98-107); SODIUM 138.7 mmol/L (137-145)
[2017-12-17 07:52] LABS: ABSOLUTE LYMPHOCYTES# (MANUAL) 1.6 10^3/uL (0.5-4.7); ABSOLUTE MONOCYTES # (MANUAL) 1.1 10^3/uL (0.1-1.4); ABSOLUTE NEUTROPHILS# (MANUAL) 10.5 10^3/uL (1.7-8.2); BASOPHILS % (MANUAL) 0 % (0-2); EOSINOPHILS % (MANUAL) 1 % (0-6); LYMPHOCYTES % (MANUAL) 12 % (13-45); MONOCYTES % (MANUAL) 8 % (3-13); SEGMENTED NEUTROPHILS % (MAN) 79 % (42-78); TOTAL CELLS COUNTED 100
[2017-12-17 07:55] LABS: ANISOCYTOSIS 4+; HYPOCHROMASIA 3+; OVALOCYTES SLIGHT; PLATELET COMMENT ADEQUATE; POIKILOCYTOSIS 2+; POLYCHROMASIA 1+
[2017-12-17 07:56] LABS: ANION GAP 5 (5-19)
[2017-12-17] MEDS: FERROUS SULFATE 325 MG TABLET PO SCH (10:05)
[2017-12-17] MEDS: DONEPEZIL HCL 5 MG TABLET PO SCH (10:05)
[2017-12-17] MEDS: DOCUSATE SODIUM 100 MG CAPSULE PO SCH ×2 (10:05→18:21)
[2017-12-17] MEDS: LISINOPRIL 10 MG TABLET PO SCH (10:06)
[2017-12-17] MEDS: FAMOTIDINE INJ/PF 20 MG/2 ML SDV IV SCH ×2 (10:06→22:11)
[2017-12-17] MEDS ORDERED: IRON DEXTRAN INJ 100 MG/2 ML VIAL IV ONE (12:53)
--- NOTE | 2017-12-17 13:17 | PDOC CONSULTATION ---
Consultation Consult Date: 12/17/17 Consult reason:: Hematology/Oncology consult was requested for patient with severe anemia and new Liver masses consistent with metastatic cancer. History of Present Illness Admission Date/PCP: 12/14/17 18:24 CARMINE GODFREY MD History of Present Illness: MOI SANCHEZ JR is a 87 year old male who was brought to the emergency room by his son apparently after having a syncopal episode while he was at the [facility]. Patient denies any dizziness nausea vomiting diaphoresis chest pain palpitations or any other pertinent symptoms. Patient's son states that he has had progressive decline over the past 8 months, requiring his son to act as caregiver. They denied any known history of a prior anemia and denies any known history of GI malignancy. He apparently does have a history of prostate cancer however from what they tell me he is not been treated. He also had a colonoscopy about 4 years ago and they tell me that it was negative. There is no history of bloody stool, abdominal pain, weight loss, vomiting blood or any other pertinent symptoms. Patient was found to have a hemoglobin of 6.7 in the emergency room and stool guaiac done was negative. His iron studies less than 10 while his ferritin is also low. Also has some significant disease with MCV of 57. Platelet count is at 531 which was suggest iron deficiency anemia. 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 He has 3 children. Oldest is caregiver and MPOA. Family History Family History: CAD Parental Family History Reviewed: Yes - Both with patient was young. He is unsure of cause Children Family History Reviewed: Yes - HTN, DM. Sibling(s) Family History Reviewed.: Yes - Unknown Medication/Allergy Home Medications: Amlodipine Besylate [Norvasc 5 mg Tablet] 5 mg PO QHS 12/14/17 Clonidine HCl [Catapres 0.2 mg Tablet] 0.2 mg PO Q8 12/14/17 Cyanocobalamin (Vitamin B-12) [Vitamin B-12 1000 mcg Tablet] 1,000 mcg PO DAILY 12/14/17 Diltiazem HCl [Cardizem 60 mg Tablet] 60 mg PO Q8 12/14/17 Docusate Sodium [Colace 100 mg Capsule] 200 mg PO DAILY 12/14/17 Donepezil HCl [Aricept 5 mg Tablet] 5 mg PO DAILY 12/14/17 Finasteride [Proscar 5 mg Tablet] 5 mg PO DAILY 12/14/17 Hydralazine HCl [Apresoline 50 mg Tablet] 50 mg PO Q8 12/14/17 Lisinopril [Zestril] 20 mg PO Q12 12/14/17 Meloxicam [Mobic] 7.5 mg PO [id number] 12/14/17 Allergies/Adverse Reactions: No Known Drug Allergies Allergy (Verified 09/01/14 12:58) Review of Systems Constitutional: ABSENT: fever(s), headache(s) Eyes: ABSENT: visual disturbances Ears: ABSENT: hearing changes Nose, Mouth, and Throat: ABSENT: sore throat Cardiovascular: ABSENT: chest pain Respiratory: ABSENT: cough, dyspnea Gastrointestinal: PRESENT: constipation, diarrhea. ABSENT: abdominal pain Genitourinary: ABSENT: dysuria Musculoskeletal: PRESENT: muscle weakness Integumentary: ABSENT: rash Neurological: PRESENT: confusion, lack of coordination, memory loss, weakness. ABSENT: focal weakness Hematologic/Lymphatic: ABSENT: easy bleeding Physical Exam Vital Signs: Temp Pulse Resp BP Pulse Ox 98.4 F 76 16 148/92 H 95 12/17/17 12:12 12/17/17 12:12 12/17/17 12:12 12/17/17 12:12 12/17/17 12:12 Intake & Output 12/16/17 12/17/17 12/18/17 06:59 06:59 06:59 Intake Total 741 622 Balance 741 622 Weight 42.4 kg 44.3 kg General appearance: PRESENT: no acute distress, well-developed, well-nourished Exam: 87 year old male. Son is at bedside. Head exam: PRESENT: atraumatic, normocephalic Eye exam: PRESENT: PERRLA Ear exam: PRESENT: normal external ear exam Mouth exam: PRESENT: tongue midline Neck exam: ABSENT: lymphadenopathy, tenderness Respiratory exam: PRESENT: clear to auscultation le, unlabored Cardiovascular exam: PRESENT: RRR. ABSENT: systolic murmur Pulses: PRESENT: normal dorsalis pedis pul GI/Abdominal exam: PRESENT: normal bowel sounds, soft. ABSENT: tenderness Extremities exam: PRESENT: +2 edema Musculoskeletal exam: PRESENT: normal inspection Neurological exam: PRESENT: awake Psychiatric exam: PRESENT: appropriate affect Focused psych exam: ABSENT: pressured speech Skin exam: PRESENT: normal color Results Laboratory Results: 12/17/17 05:46 12/17/17 05:43 12/17/17 12/17/17 05:43 05:46 WBC 13.3 H RBC 4.94 Hgb 9.1 L Hct 31.0 L MCV 63 L MCH 18.3 L MCHC 29.2 L RDW 28.5 H Plt Count 375 Seg Neutrophils % Not Reportable Lymphocytes % Not Reportable Monocytes % Not Reportable Eosinophils % Not Reportable Basophils % Not Reportable Absolute Neutrophils Not Reportable Absolute Lymphocytes Not Reportable Absolute Monocytes Not Reportable Absolute Eosinophils Not Reportable Absolute Basophils Not Reportable Sodium 138.7 Potassium 3.7 Chloride 99 Carbon Dioxide 35 H Anion Gap 5 BUN 10 Creatinine 0.63 Est GFR ( Amer) > 60 Est GFR (Non-Af Amer) > 60 Glucose 90 Calcium 8.7 Total Bilirubin 0.6 AST 104 H ALT 66 Alkaline Phosphatase 214 H Total Protein 6.2 L Albumin 3.0 L Prostate Specific Ag 21.900 H Impressions: Head CT 12/14/17 15:34 IMPRESSION: MILD CHRONIC MICROVASCULAR ISCHEMIA. NO ACUTE IMAGING FINDINGS IN THE BRAIN. EVIDENCE OF ACUTE STROKE: NO. Abdomen/Pelvis CT 12/15/17 00:00 IMPRESSION: 1. Findings in the lower chest as described. 2. Hepatic masses. 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 3. Small nonspecific mesenteric lymph nodes. 4. Prominent left inguinal hernia containing a loop of sigmoid colon. Status: Image reviewed by me Assessment & Plan - Diagnosis (1) Anemia Qualifiers: Anemia type: iron deficiency Iron deficiency anemia type: unspecified iron deficiency Qualified Code(s): D50.9 - Iron deficiency anemia, unspecified Is this a current diagnosis for this admission?: Yes Plan: He had a good response to Blood transfusion. I will give a one time IV iron dose. Stop PO iron for now. I have explained that this could be due to poor PO intake, or GI blood loss, or both. (2) Liver masses Is this a current diagnosis for this admission?: Yes Plan: I have explained that iron deficiency anemia in a patient with Large Liver masses on CT clinically is consistent with metastatic colon cancer. I have recommended CT guided Liver biopsy to confirm this. Patient and family understand that even with confirmation of cancer, patient will not be a candidate for any aggressive treatment and only Palliative care will be recommended. However, they would like confirmation of cancer. He also has a history of prostate cancer. I will try to arrange CT guided biopsy for Tuesday morning. I will order PT/PTT/PLT and NPO after midnight in preparation. - Plan Summary Plan Summary: Thank you for this consult. I will continue to follow him with you. I spent 20 minutes with family answering all questions in addition to time with patient for H&P. I discussed his care with Dr. Juarez. Please feel free to call me with any questions or concerns.
[2017-12-17] MEDS ORDERED: IRON DEXTRAN COMPLEX 25 MG in NORMAL SALINE 100 ML IV ONE (14:00)
[2017-12-17] MEDS ORDERED: IRON DEXTRAN COMPLEX 975 MG in NORMAL SALINE 500 ML IV ONE (14:35)
--- NOTE | 2017-12-17 19:49 | PDOC PROGRESS REPORT ---
Subjective Progress Note for:: 12/17/17 Subjective:: Feeling better today, no recurrent syncope. Slept well last night with trazodone. No chest pain or shortness of breath or palpitations. Son at bedside. Denies rectal bleeding. Patient has been seen by Dr. Polo of heme/ onc. Her evaluation appreciated. Reason For Visit: SYNCOPE ANEMIA Physical Exam Vital Signs: Temp Pulse Resp BP Pulse Ox 97.3 F 89 16 152/75 H 96 12/17/17 16:07 12/17/17 16:07 12/17/17 16:07 12/17/17 16:07 12/17/17 16:07 Intake & Output 12/16/17 12/17/17 12/18/17 06:59 06:59 06:59 Intake Total 741 622 20 Balance 741 622 20 Weight 42.4 kg 44.3 kg GEN: NAD, well-developed, well-nourished CV: RRR, NL S1S2 LUNGS: CTA bilaterally ABDOMEN Soft, NT, +BS EXTERMITIES: No e/c/c NEURO: Alert, oriented 3, no lateralizing weakness Results Laboratory Results: 12/17/17 05:46 12/17/17 05:43 12/17/17 12/17/17 05:43 05:46 WBC 13.3 H RBC 4.94 Hgb 9.1 L Hct 31.0 L MCV 63 L MCH 18.3 L MCHC 29.2 L RDW 28.5 H Plt Count 375 Seg Neutrophils % Not Reportable Lymphocytes % Not Reportable Monocytes % Not Reportable Eosinophils % Not Reportable Basophils % Not Reportable Absolute Neutrophils Not Reportable Absolute Lymphocytes Not Reportable Absolute Monocytes Not Reportable Absolute Eosinophils Not Reportable Absolute Basophils Not Reportable Sodium 138.7 Potassium 3.7 Chloride 99 Carbon Dioxide 35 H Anion Gap 5 BUN 10 Creatinine 0.63 Est GFR ( Amer) > 60 Est GFR (Non-Af Amer) > 60 Glucose 90 Calcium 8.7 Total Bilirubin 0.6 AST 104 H ALT 66 Alkaline Phosphatase 214 H Total Protein 6.2 L Albumin 3.0 L Prostate Specific Ag 21.900 H Impressions: Head CT 12/14/17 15:34 IMPRESSION: MILD CHRONIC MICROVASCULAR ISCHEMIA. NO ACUTE IMAGING FINDINGS IN THE BRAIN. EVIDENCE OF ACUTE STROKE: NO. Abdomen/Pelvis CT 12/15/17 00:00 IMPRESSION: 1. Findings in the lower chest as described. 2. Hepatic masses. 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 3. Small nonspecific mesenteric lymph nodes. 4. Prominent left inguinal hernia containing a loop of sigmoid colon. Assessment & Plan - Diagnosis (1) Anemia Qualifiers: Anemia type: iron deficiency Iron deficiency anemia type: unspecified iron deficiency Qualified Code(s): D50.9 - Iron deficiency anemia, unspecified Is this a current diagnosis for this admission?: Yes Plan: Suspect this is secondary to iron deficiency and/or chronic disease. H&H improved with 2 units packed red blood cells, and has remained stable today. We will continue to trend CBC. Abdominal and pelvic CT result noted--liver lesions described. PSA elevated at 21. Oncology consultation appreciated--Dr. Polo thinks this is more likely iron deficiency, possible colon cancer. Plan for CT-guided liver biopsy per family's wishes for a diagnosis per Dr. Merino's note. -Treat with IV iron and d/c po iron for now per hematology recommendation (2) Syncope Qualifiers: Syncope type: unspecified Qualified Code(s): R55 - Syncope and collapse Is this a current diagnosis for this admission?: Yes Plan: Likely secondary to anemia. Continue to monitor. (3) Dementia Qualifiers: Dementia type: Alzheimer's disease Is this a current diagnosis for this admission?: Yes Plan: Appears mild to moderate, stable. (4) Hypertension Is this a current diagnosis for this admission?: Yes Plan: BPs improved. Will continue antihypertensives. (5) Hypokalemia Is this a current diagnosis for this admission?: Yes Plan: Corrected, follow-up Chem-7 in a.m.
[2017-12-17] MEDS: AMLODIPINE BESYLATE 5 MG TABLET PO SCH (22:10)
[2017-12-17] MEDS: TRAZODONE HCL 50 MG TABLET PO SCH (22:10)
[2017-12-18 06:26] LABS: HEMATOCRIT 27.5 % (37.9-51.0); HEMOGLOBIN 8.3 g/dL (13.5-17.0); MEAN CORPUSCULAR HGB CONC 30.1 g/dL (32.0-36.0); MEAN CORPUSCULAR VOLUME 63 fl (80-97); PLATELET COUNT 376 10^3/uL (150-450); RED BLOOD COUNT 4.36 10^6/uL (4.35-5.55); RED CELL DISTRIBUTION WIDTH 29.3 % (11.5-14.0); WHITE BLOOD COUNT 13.2 10^3/uL (4.0-10.5)
[2017-12-18 06:48] LABS: BLOOD UREA NITROGEN 14 mg/dL (7-20); CALCIUM 9.1 mg/dL (8.4-10.2); CARBON DIOXIDE 37 mmol/L (22-30); GLUCOSE 103 mg/dL (75-110); POTASSIUM 3.8 mmol/L (3.6-5.0)
[2017-12-18 06:52] LABS: CHLORIDE 100 mmol/L (98-107)
[2017-12-18 07:14] LABS: ABSOLUTE LYMPHOCYTES# (MANUAL) 1.6 10^3/uL (0.5-4.7); ABSOLUTE MONOCYTES # (MANUAL) 2.2 10^3/uL (0.1-1.4); ABSOLUTE NEUTROPHILS# (MANUAL) 9.1 10^3/uL (1.7-8.2); BASOPHILS % (MANUAL) 2 % (0-2); EOSINOPHILS % (MANUAL) 0 % (0-6); LYMPHOCYTES % (MANUAL) 7 % (13-45); MONOCYTES % (MANUAL) 17 % (3-13); SEGMENTED NEUTROPHILS % (MAN) 69 % (42-78); TOTAL CELLS COUNTED 100
[2017-12-18 07:23] LABS: ANISOCYTOSIS 4+; HYPOCHROMASIA 1+; PLATELET COMMENT ADEQUATE; POIKILOCYTOSIS 2+; POLYCHROMASIA 1+; SCHISTOCYTES 1+; TARGET CELLS 2+; TOXIC VACUOLATION PRESENT
[2017-12-18 07:36] LABS: ANION GAP 4 (5-19)
[2017-12-18] MEDS: DOCUSATE SODIUM 100 MG CAPSULE PO SCH ×2 (09:15→17:07)
[2017-12-18] MEDS: LISINOPRIL 10 MG TABLET PO SCH (09:15)
[2017-12-18] MEDS: DONEPEZIL HCL 5 MG TABLET PO SCH (09:15)
[2017-12-18] MEDS: FAMOTIDINE INJ/PF 20 MG/2 ML SDV IV SCH ×2 (09:16→23:21)
[2017-12-18] MEDS: CLONIDINE HCL 0.2 MG TABLET PO PRN (13:29)
[2017-12-18] MEDS ORDERED: DEXTROSE 40% GEL 15 GM TUBE PO PRN ×2 (16:40)
[2017-12-18] MEDS ORDERED: GLUCAGON,HUMAN RECOMB 1 MG INJ SUBCUT PRN (16:40)
[2017-12-18] MEDS ORDERED: DEXTROSE 50%-WATER 25 GM/50 ML DISP.SYRIN IV PRN ×2 (16:40)
--- NOTE | 2017-12-18 17:53 | PDOC PROGRESS REPORT ---
Subjective Progress Note for:: 12/18/17 Subjective:: Doing about the same. Son at bedside. Denies abdominal pain or other pain. No other complaints Reason For Visit: SYNCOPE ANEMIA Physical Exam Vital Signs: Temp Pulse Resp BP Pulse Ox 98.1 F 78 16 146/71 H 95 12/18/17 15:51 12/18/17 15:51 12/18/17 15:51 12/18/17 15:51 12/18/17 15:51 Intake & Output 12/17/17 12/18/17 12/19/17 06:59 06:59 06:59 Intake Total 622 95 0 Balance 622 95 0 Weight 44.3 kg General appearance: PRESENT: no acute distress, other - Resting comfortably Head exam: PRESENT: normocephalic Mouth exam: PRESENT: moist Respiratory exam: PRESENT: unlabored Cardiovascular exam: PRESENT: +S1, +S2 GI/Abdominal exam: PRESENT: soft. ABSENT: tenderness Neurological exam: PRESENT: alert, awake Psychiatric exam: PRESENT: other - Flat affect Results Laboratory Results: 12/18/17 05:41 12/18/17 05:41 12/18/17 12/18/17 05:41 05:41 WBC 13.2 H RBC 4.36 Hgb 8.3 L Hct 27.5 L MCV 63 L MCH 19.0 L MCHC 30.1 L RDW 29.3 H Plt Count 376 Seg Neutrophils % Not Reportable Lymphocytes % Not Reportable Monocytes % Not Reportable Eosinophils % Not Reportable Basophils % Not Reportable Absolute Neutrophils Not Reportable Absolute Lymphocytes Not Reportable Absolute Monocytes Not Reportable Absolute Eosinophils Not Reportable Absolute Basophils Not Reportable Sodium 141.0 Potassium 3.8 Chloride 100 Carbon Dioxide 37 H Anion Gap 4 L BUN 14 Creatinine 0.61 Est GFR ( Amer) > 60 Est GFR (Non-Af Amer) > 60 Glucose 103 Calcium 9.1 Impressions: Head CT 12/14/17 15:34 IMPRESSION: MILD CHRONIC MICROVASCULAR ISCHEMIA. NO ACUTE IMAGING FINDINGS IN THE BRAIN. EVIDENCE OF ACUTE STROKE: NO. Abdomen/Pelvis CT 12/15/17 00:00 IMPRESSION: 1. Findings in the lower chest as described. 2. Hepatic masses. 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 3. Small nonspecific mesenteric lymph nodes. 4. Prominent left inguinal hernia containing a loop of sigmoid colon. Assessment & Plan - Diagnosis (1) Liver masses Is this a current diagnosis for this admission?: Yes Plan: Given multiple liver masses seen on CT, there is concern for metastatic process with likely colonic source given iron deficiency anemia - Plan for CT guided liver bx on Tuesday, 12/19 - NPO aftermid night - Has been evaluated with Dr. Galvan, oncology. Appreciate continued recs (2) Anemia Qualifiers: Anemia type: iron deficiency Iron deficiency anemia type: unspecified iron deficiency Qualified Code(s): D50.9 - Iron deficiency anemia, unspecified Is this a current diagnosis for this admission?: Yes Plan: C/f colon cancer as source. Has been treated with IV iron - Continue to monitor CBC (3) Dementia Qualifiers: Dementia type: Alzheimer's disease Is this a current diagnosis for this admission?: Yes Plan: At baseline, conversant - Time Time Spent with patient: Less than 15 minutes
[2017-12-18] MEDS: AMLODIPINE BESYLATE 5 MG TABLET PO SCH (23:15)
[2017-12-18] MEDS: TRAZODONE HCL 50 MG TABLET PO SCH (23:21)
[2017-12-19] MEDS: CLONIDINE HCL 0.2 MG TABLET PO PRN (01:13)
[2017-12-19 05:29] LABS: HEMATOCRIT 27.2 % (37.9-51.0); HEMOGLOBIN 8.1 g/dL (13.5-17.0); MEAN CORPUSCULAR HGB CONC 29.8 g/dL (32.0-36.0); MEAN CORPUSCULAR VOLUME 64 fl (80-97); PLATELET COUNT 355 10^3/uL (150-450); RED BLOOD COUNT 4.27 10^6/uL (4.35-5.55); RED CELL DISTRIBUTION WIDTH 31.1 % (11.5-14.0); WHITE BLOOD COUNT 15.4 10^3/uL (4.0-10.5)
[2017-12-19 06:14] LABS: PARTIAL THROMBOPLASTIN TIME 35.4 SEC (23.5-35.8)
[2017-12-19 06:32] LABS: ABSOLUTE LYMPHOCYTES# (MANUAL) 0.9 10^3/uL (0.5-4.7); ABSOLUTE MONOCYTES # (MANUAL) 0.9 10^3/uL (0.1-1.4); ABSOLUTE NEUTROPHILS# (MANUAL) 13.6 10^3/uL (1.7-8.2); BASOPHILS % (MANUAL) 0 % (0-2); EOSINOPHILS % (MANUAL) 0 % (0-6); LYMPHOCYTES % (MANUAL) 6 % (13-45); MONOCYTES % (MANUAL) 6 % (3-13); SEGMENTED NEUTROPHILS % (MAN) 88 % (42-78); TOTAL CELLS COUNTED 100
[2017-12-19 06:36] LABS: ANISOCYTOSIS 2+; HYPOCHROMASIA 3+; POIKILOCYTOSIS SLIGHT; POLYCHROMASIA 1+
[2017-12-19 06:37] LABS: PLATELET COMMENT ADEQUATE; SCHISTOCYTES SLIGHT
--- NOTE | 2017-12-19 08:12 | PDOC PROGRESS REPORT ---
Subjective Progress Note for:: 12/19/17 Subjective:: Patient sleeping peacefully. Son is at bedside and report no new problems. They are awaiting liver biopsy to be performed today. Son asks if patient will remain in the hospital for a few more days, as he will need to travel to [place]. Reason For Visit: SYNCOPE ANEMIA Physical Exam Vital Signs: Temp Pulse Resp BP Pulse Ox 98.6 F 80 18 141/81 H 93 12/19/17 04:04 12/19/17 04:04 12/19/17 04:04 12/19/17 04:04 12/19/17 04:04 Intake & Output 12/18/17 12/19/17 12/20/17 06:59 06:59 06:59 Intake Total 95 240 Balance 95 240 General appearance: PRESENT: no acute distress Head exam: PRESENT: normocephalic Respiratory exam: PRESENT: unlabored Neurological exam: ABSENT: awake Skin exam: PRESENT: normal color Results Laboratory Results: 12/19/17 04:59 12/18/17 05:41 12/19/17 04:59 WBC 15.4 H RBC 4.27 L Hgb 8.1 L Hct 27.2 L MCV 64 L MCH 19.0 L MCHC 29.8 L RDW 31.1 H Plt Count 355 Seg Neutrophils % Not Reportable Lymphocytes % Not Reportable Monocytes % Not Reportable Eosinophils % Not Reportable Basophils % Not Reportable Absolute Neutrophils Not Reportable Absolute Lymphocytes Not Reportable Absolute Monocytes Not Reportable Absolute Eosinophils Not Reportable Absolute Basophils Not Reportable Impressions: Head CT 12/14/17 15:34 IMPRESSION: MILD CHRONIC MICROVASCULAR ISCHEMIA. NO ACUTE IMAGING FINDINGS IN THE BRAIN. EVIDENCE OF ACUTE STROKE: NO. Abdomen/Pelvis CT 12/15/17 00:00 IMPRESSION: 1. Findings in the lower chest as described. 2. Hepatic masses. 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 3. Small nonspecific mesenteric lymph nodes. 4. Prominent left inguinal hernia containing a loop of sigmoid colon. Assessment & Plan - Diagnosis (1) Anemia Qualifiers: Anemia type: iron deficiency Iron deficiency anemia type: unspecified iron deficiency Qualified Code(s): D50.9 - Iron deficiency anemia, unspecified Is this a current diagnosis for this admission?: Yes Plan: CBC currently stable. He has received pRBCs as well as IV iron infusion. I will continue to monitor this. (2) Liver masses Is this a current diagnosis for this admission?: Yes Plan: Most likely metastatic colon cancer. CEA is markedly elevated. Await biopsy results. Family understand that patient will not be a candidate for aggressive treatment, but they would like pathologic confirmation of the diagnosis prior to making further long-term decisions. - Plan Summary Plan Summary: I will continue to follow, but I have explained to the family that patient does not need to remain in the hospital ONLY to await biopsy results. If no other medical concerns, then he may be discharged and I can see him in the office for follow-up. Otherwise, I will be happy to continue to follow him here as well.
[2017-12-19] MEDS: DOCUSATE SODIUM 100 MG CAPSULE PO SCH ×2 (10:02→17:32)
[2017-12-19] MEDS: FAMOTIDINE INJ/PF 20 MG/2 ML SDV IV SCH (10:02)
[2017-12-19] MEDS: DONEPEZIL HCL 5 MG TABLET PO SCH (10:02)
[2017-12-19] MEDS: LISINOPRIL 10 MG TABLET PO SCH (10:02)
[2017-12-19] MEDS ORDERED: MIDAZOLAM 2 MG/2 ML INJ ONE (13:20)
[2017-12-19] MEDS ORDERED: LIDOCAINE 1% INJ-PF (10 MG/ML) 30 ML SDV ONE (13:21)
[2017-12-19] MEDS ORDERED: FENTANYL CITRATE INJ/PF 100 MCG/2 ML AMPUL ONE (13:21)
--- NOTE | 2017-12-19 14:55 | RADIOLOGY REPORT (SQ) ---
EXAM DESCRIPTION: CT BIOPSY LIVER; CT NEEDLE PLACEMENT COMPLETED DATE/TIME: 12/19/2017 2:14 pm REASON FOR STUDY: Liver mass; LIVER MASS, LIVER BIOPSY COMPARISON: CT abdomen pelvis 12/15/2017 TECHNIQUE: After obtaining informed consent, the patient was brought to the CT suite and was placed supine on the CT gurney. The patient was prepped and draped in the usual sterile fashion . Axial isidoro ges were obtained for targeting of theright lobe liver mass. An appropriate access site was selected. IV sedation was administered and physician direction by the registered nurse using 0.5 milligrams of Versed and 50 micrograms of fentanyl. Physiologic monitoring was provided before, during, and after sedation. The total sedation time was 35 minutes. Documentation face to face time, the performing proceduralist, spent monitoring the patient: 10minute s. Noncontrasted CT of the liver was performed to localize an approach for the right lobe live mass bio psy. A percutaneous site was marked. Time out was performed. After skin prep and local lidocaine for skin and deep tissue anesthesia, a coaxial biopsy needle sys tem was used to obtain 5 cores of tissue from the right lobe liver mass. These were submitted to the lab in formalin. A small amount of clear straw-colored fluid returned from the needle after the 5th pass. This was sent to microbiology for Gram stain culture and sensitivity. Biopsy tract was not e mbolized with a Gelfoam plug. No immediate postprocedure complications. Total of 2.[address] fluoro was used. All CT scanners at this facility use dose modulation, iterative reconstruction, and/or weight based d osing when appropriate to reduce radiation dose to as low as reasonably achievable (ALARA). [facility]: Dose Right [facility]: CareDose [facility]: Dose Right [facility]: Teradose 4D [facility]: [employer] RADIATION DOSE: CT Rad equipment meets quality standard of care and radiation dose reduction techniq ues were employed. CTDIvol: 15.5 mGy. DLP: 384 mGy-cm. mGy. LIMITATIONS: None. FINDINGS: CT guided liver biopsy as detailed above. IMPRESSION: CT GUIDED RIGHT LOBE LIVER MASS BIOPSY PERFORMED ABOVE. PATHOLOGY PENDING. NO IMME DIATE COMPLICATIONS. AN ASPIRATED FLUID WAS ALSO SENT FOR GRAM STAIN CULTURE AND SENSITIVITY. IV CONSCIOUS SEDATION COMMENT: Patient medication list reviewed:Yes- Quality ID# [id number]:Eligible professional attests to docu menting in the medical record they obtained, updated, or reviewed the patient's current medications.. Quality ID 145: Final reports for procedures using fluoroscopy that document radiation exposure lynn gurmeet, or exposure time and number of fluorographic images (if radiation exposure indices are not avail able) TECHNICAL DOCUMENTATION: JOB ID: [id number] Quality ID # [id number]: Final reports with documentation of one or more dose reduction techniques (e.g., A utomated exposure control, adjustment of the mA and/or kV according to patient size, use of iterative reconstruction technique) 2010 [email or web address]- All Rights Reserved Reading location - IP/workstation name: [email or web address]
--- NOTE | 2017-12-19 14:55 | RADIOLOGY REPORT (SQ) ---
EXAM DESCRIPTION: CT BIOPSY LIVER; CT NEEDLE PLACEMENT COMPLETED DATE/TIME: 12/19/2017 2:14 pm REASON FOR STUDY: Liver mass; LIVER MASS, LIVER BIOPSY COMPARISON: CT abdomen pelvis 12/15/2017 TECHNIQUE: After obtaining informed consent, the patient was brought to the CT suite and was placed supine on the CT gurney. The patient was prepped and draped in the usual sterile fashion . Axial isidoro ges were obtained for targeting of theright lobe liver mass. An appropriate access site was selected. IV sedation was administered and physician direction by the registered nurse using 0.5 milligrams of Versed and 50 micrograms of fentanyl. Physiologic monitoring was provided before, during, and after sedation. The total sedation time was 35 minutes. Documentation face to face time, the performing proceduralist, spent monitoring the patient: 10minute s. Noncontrasted CT of the liver was performed to localize an approach for the right lobe live mass bio psy. A percutaneous site was marked. Time out was performed. After skin prep and local lidocaine for skin and deep tissue anesthesia, a coaxial biopsy needle sys tem was used to obtain 5 cores of tissue from the right lobe liver mass. These were submitted to the lab in formalin. A small amount of clear straw-colored fluid returned from the needle after the 5th pass. This was sent to microbiology for Gram stain culture and sensitivity. Biopsy tract was not e mbolized with a Gelfoam plug. No immediate postprocedure complications. Total of 2.[address] fluoro was used. All CT scanners at this facility use dose modulation, iterative reconstruction, and/or weight based d osing when appropriate to reduce radiation dose to as low as reasonably achievable (ALARA). [facility]: Dose Right [facility]: CareDose [facility]: Dose Right [facility]: Teradose 4D [facility]: [employer] RADIATION DOSE: CT Rad equipment meets quality standard of care and radiation dose reduction techniq ues were employed. CTDIvol: 15.5 mGy. DLP: 384 mGy-cm. mGy. LIMITATIONS: None. FINDINGS: CT guided liver biopsy as detailed above. IMPRESSION: CT GUIDED RIGHT LOBE LIVER MASS BIOPSY PERFORMED ABOVE. PATHOLOGY PENDING. NO IMME DIATE COMPLICATIONS. AN ASPIRATED FLUID WAS ALSO SENT FOR GRAM STAIN CULTURE AND SENSITIVITY. IV CONSCIOUS SEDATION COMMENT: Patient medication list reviewed:Yes- Quality ID# [id number]:Eligible professional attests to docu menting in the medical record they obtained, updated, or reviewed the patient's current medications.. Quality ID 145: Final reports for procedures using fluoroscopy that document radiation exposure lynn gurmeet, or exposure time and number of fluorographic images (if radiation exposure indices are not avail able) TECHNICAL DOCUMENTATION: JOB ID: [id number] Quality ID # [id number]: Final reports with documentation of one or more dose reduction techniques (e.g., A utomated exposure control, adjustment of the mA and/or kV according to patient size, use of iterative reconstruction technique) 2010 [employer]- All Rights Reserved Reading location - IP/workstation name: [facility]-[email or web address]
[2017-12-19] MEDS: HYDRALAZINE HCL 50 MG TABLET PO SCH ×2 (15:17→23:14)
[2017-12-19] MEDS: DILTIAZEM HCL 60 MG TABLET PO SCH ×2 (15:18→23:15)
[2017-12-19] MEDS: CLONIDINE HCL 0.2 MG TABLET PO SCH ×2 (15:18→23:14)
--- NOTE | 2017-12-19 16:48 | PDOC PROGRESS REPORT ---
Subjective Progress Note for:: 12/19/17 Subjective:: No complaints. Son is at bedside and is requesting a hospital bed on discharge. He is also concerned because some of the medications that patient is taking in the outpatient sedated had not been restarted. Review of system All organ systems evaluated and negative except as in subjective All significant diagnostics and laboratories have been reviewed Reason For Visit: SYNCOPE ANEMIA Physical Exam Vital Signs: Temp Pulse Resp BP Pulse Ox 97.9 F 72 13 154/80 H 92 12/19/17 13:13 12/19/17 13:13 12/19/17 13:13 12/19/17 13:13 12/19/17 13:13 Intake & Output 12/18/17 12/19/17 12/20/17 06:59 06:59 06:59 Intake Total 95 240 Balance 95 240 General appearance: PRESENT: cooperative, thin Head exam: PRESENT: atraumatic, normocephalic Eye exam: PRESENT: conjunctiva pink, EOMI, PERRLA Ear exam: PRESENT: normal external ear exam Mouth exam: PRESENT: moist Neck exam: PRESENT: full ROM. ABSENT: JVD, lymphadenopathy, tenderness Respiratory exam: PRESENT: clear to auscultation le Cardiovascular exam: PRESENT: RRR. ABSENT: diastolic murmur, systolic murmur Vascular exam: PRESENT: normal capillary refill GI/Abdominal exam: PRESENT: normal bowel sounds, soft. ABSENT: tenderness Extremities exam: PRESENT: full ROM. ABSENT: pedal edema Musculoskeletal exam: PRESENT: ambulatory Neurological exam: PRESENT: alert, awake, oriented to person, oriented to place , oriented to time, oriented to situation, CN II-XII grossly intact Psychiatric exam: PRESENT: depressed Skin exam: PRESENT: intact, normal color Results Laboratory Results: 12/19/17 04:59 12/18/17 05:41 12/19/17 04:59 WBC 15.4 H RBC 4.27 L Hgb 8.1 L Hct 27.2 L MCV 64 L MCH 19.0 L MCHC 29.8 L RDW 31.1 H Plt Count 355 Seg Neutrophils % Not Reportable Lymphocytes % Not Reportable Monocytes % Not Reportable Eosinophils % Not Reportable Basophils % Not Reportable Absolute Neutrophils Not Reportable Absolute Lymphocytes Not Reportable Absolute Monocytes Not Reportable Absolute Eosinophils Not Reportable Absolute Basophils Not Reportable Impressions: Head CT 12/14/17 15:34 IMPRESSION: MILD CHRONIC MICROVASCULAR ISCHEMIA. NO ACUTE IMAGING FINDINGS IN THE BRAIN. EVIDENCE OF ACUTE STROKE: NO. Abdomen/Pelvis CT 12/15/17 00:00 IMPRESSION: 1. Findings in the lower chest as described. 2. Hepatic masses. 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 3. Small nonspecific mesenteric lymph nodes. 4. Prominent left inguinal hernia containing a loop of sigmoid colon. Guidance Needle Placement CT 12/19/17 00:00 IMPRESSION: CT GUIDED RIGHT LOBE LIVER MASS BIOPSY PERFORMED ABOVE. PATHOLOGY PENDING. NO IMMEDIATE COMPLICATIONS. AN ASPIRATED FLUID WAS ALSO SENT FOR GRAM STAIN CULTURE AND SENSITIVITY. IV CONSCIOUS SEDATION Liver Biopsy CT 12/19/17 06:00 IMPRESSION: CT GUIDED RIGHT LOBE LIVER MASS BIOPSY PERFORMED ABOVE. PATHOLOGY PENDING. NO IMMEDIATE COMPLICATIONS. AN ASPIRATED FLUID WAS ALSO SENT FOR GRAM STAIN CULTURE AND SENSITIVITY. IV CONSCIOUS SEDATION Assessment & Plan - Diagnosis (1) Anemia Qualifiers: Anemia type: iron deficiency Iron deficiency anemia type: unspecified iron deficiency Qualified Code(s): D50.9 - Iron deficiency anemia, unspecified Is this a current diagnosis for this admission?: Yes Plan: Improved after transfusion and iron supplementation (2) Liver masses Is this a current diagnosis for this admission?: Yes Plan: For liver biopsy today (3) Syncope Qualifiers: Syncope type: unspecified Qualified Code(s): R55 - Syncope and collapse Is this a current diagnosis for this admission?: Yes Plan: Likely vasovagal (4) Accelerated hypertension Is this a current diagnosis for this admission?: Yes Plan: Restart outpatient regimen - Time Time Spent with patient: 15-24 minutes Medications reviewed and adjusted accordingly: Yes Anticipated discharge: Home with Homehealth Within: within 24 hours - Inpatient Certification Based on my medical assessment, after consideration of the patient's comorbidities, presenting symptoms, or acuity I expect that the services needed warrant INPATIENT care.: Yes I certify that my determination is in accordance with my understanding of Medicare's requirements for reasonable and necessary INPATIENT services [42 CFR 412.3e].: Yes Medical Necessity: Need Close Monitoring Due to Risk of Patient Decompensation, Need For Continuous Telemetry Monitoring
[2017-12-19] MEDS ORDERED: (PENDING PHARMACY ID) (Lisinopril [Zestril] 20 MG) PO SCH (22:00)
[2017-12-19] MEDS: TRAZODONE HCL 50 MG TABLET PO SCH (23:14)
[2017-12-19] MEDS: AMLODIPINE BESYLATE 5 MG TABLET PO SCH (23:14)
[2017-12-20] MEDS: HYDRALAZINE HCL 50 MG TABLET PO SCH ×2 (05:31→17:44)
[2017-12-20] MEDS: DILTIAZEM HCL 60 MG TABLET PO SCH ×2 (05:31→17:44)
[2017-12-20] MEDS: CLONIDINE HCL 0.2 MG TABLET PO SCH ×2 (05:31→17:44)
[2017-12-20] MEDS ORDERED: DONEPEZIL HCL 5 MG TABLET PO SCH (10:00)
[2017-12-20] MEDS ORDERED: FINASTERIDE 5 MG TABLET PO SCH (10:00)
[2017-12-20] MEDS: DOCUSATE SODIUM 100 MG CAPSULE PO SCH ×2 (10:44→17:44)
[2017-12-20] MEDS: LISINOPRIL 10 MG TABLET PO SCH (10:45)
[2017-12-20 16:55] VITALS: BP 121/67
--- NOTE | 2017-12-20 16:55 | PDOC PROGRESS REPORT ---
Subjective Progress Note for:: 12/20/17 Subjective:: No complaints. Review of system All organ systems evaluated and negative except as in subjective All significant diagnostics and laboratories have been reviewed Reason For Visit: SYNCOPE ANEMIA Physical Exam Vital Signs: Temp Pulse Resp BP Pulse Ox 99.5 F 86 14 122/68 90 L 12/20/17 11:33 12/20/17 11:33 12/20/17 11:33 12/20/17 11:33 12/20/17 11:33 Intake & Output 12/19/17 12/20/17 12/21/17 06:59 06:59 06:59 Intake Total 240 10 Balance 240 10 Weight 76.9 kg General appearance: PRESENT: cooperative, thin Head exam: PRESENT: atraumatic, normocephalic Eye exam: PRESENT: conjunctiva pale, EOMI, PERRLA Mouth exam: PRESENT: moist Neck exam: PRESENT: full ROM. ABSENT: JVD, lymphadenopathy, tenderness Respiratory exam: PRESENT: clear to auscultation le Cardiovascular exam: PRESENT: RRR. ABSENT: diastolic murmur, systolic murmur GI/Abdominal exam: PRESENT: normal bowel sounds, soft. ABSENT: tenderness Extremities exam: PRESENT: full ROM. ABSENT: pedal edema Musculoskeletal exam: ABSENT: ambulatory Neurological exam: PRESENT: alert, awake, oriented to person Psychiatric exam: PRESENT: depressed Skin exam: PRESENT: pallor Results Laboratory Results: 12/19/17 04:59 12/18/17 05:41 Impressions: Head CT 12/14/17 15:34 IMPRESSION: MILD CHRONIC MICROVASCULAR ISCHEMIA. NO ACUTE IMAGING FINDINGS IN THE BRAIN. EVIDENCE OF ACUTE STROKE: NO. Abdomen/Pelvis CT 12/15/17 00:00 IMPRESSION: 1. Findings in the lower chest as described. 2. Hepatic masses. 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 3. Small nonspecific mesenteric lymph nodes. 4. Prominent left inguinal hernia containing a loop of sigmoid colon. Guidance Needle Placement CT 12/19/17 00:00 IMPRESSION: CT GUIDED RIGHT LOBE LIVER MASS BIOPSY PERFORMED ABOVE. PATHOLOGY PENDING. NO IMMEDIATE COMPLICATIONS. AN ASPIRATED FLUID WAS ALSO SENT FOR GRAM STAIN CULTURE AND SENSITIVITY. IV CONSCIOUS SEDATION Liver Biopsy CT 12/19/17 06:00 IMPRESSION: CT GUIDED RIGHT LOBE LIVER MASS BIOPSY PERFORMED ABOVE. PATHOLOGY PENDING. NO IMMEDIATE COMPLICATIONS. AN ASPIRATED FLUID WAS ALSO SENT FOR GRAM STAIN CULTURE AND SENSITIVITY. IV CONSCIOUS SEDATION Assessment & Plan - Diagnosis (1) Anemia Qualifiers: Anemia type: iron deficiency Iron deficiency anemia type: unspecified iron deficiency Qualified Code(s): D50.9 - Iron deficiency anemia, unspecified Is this a current diagnosis for this admission?: Yes Plan: Improved after transfusion and iron supplementation. No further intervention patient to go in hospice (2) Liver masses Is this a current diagnosis for this admission?: Yes Plan: Tolerated liver biopsy. Microbiology negative. Pathology pending (3) Syncope Qualifiers: Syncope type: unspecified Qualified Code(s): R55 - Syncope and collapse Is this a current diagnosis for this admission?: Yes Plan: Likely vasovagal (4) Accelerated hypertension Is this a current diagnosis for this admission?: Yes Plan: Resolved - Time Time Spent with patient: 15-24 minutes Medications reviewed and adjusted accordingly: Yes Anticipated discharge: Hospice Within: within 24 hours - Inpatient Certification Based on my medical assessment, after consideration of the patient's comorbidities, presenting symptoms, or acuity I expect that the services needed warrant INPATIENT care.: Yes I certify that my determination is in accordance with my understanding of Medicare's requirements for reasonable and necessary INPATIENT services [42 CFR 412.3e].: Yes Medical Necessity: Need Close Monitoring Due to Risk of Patient Decompensation
--- NOTE | 2017-12-22 06:02 | PDOC DISCHARGE SUMMARY ---
General - Admit/Disc Date/PCP Admission Date/Primary Care Provider: 12/14/17 18:24 CARMINE GODFREY MD Discharge Date: 12/20/17 - Discharge Diagnosis (1) Anemia Is this a current diagnosis for this admission?: Yes (2) Liver masses Is this a current diagnosis for this admission?: Yes (3) Syncope Is this a current diagnosis for this admission?: Yes (4) Accelerated hypertension Is this a current diagnosis for this admission?: Yes - Additional Information Discharge Diet: As Tolerated Discharge Activity: Activity As Tolerated Home Medications: Clonidine HCl [Catapres 0.2 mg Tablet] 0.2 mg PO Q8 12/14/17 Cyanocobalamin (Vitamin B-12) [Vitamin B-12 1000 mcg Tablet] 1,000 mcg PO DAILY 12/14/17 Diltiazem HCl [Cardizem 60 mg Tablet] 60 mg PO Q8 12/14/17 Docusate Sodium [Colace 100 mg Capsule] 200 mg PO DAILY 12/14/17 Donepezil HCl [Aricept 5 mg Tablet] 5 mg PO DAILY 12/14/17 Finasteride [Proscar 5 mg Tablet] 5 mg PO DAILY 12/14/17 Hydralazine HCl [Apresoline 50 mg Tablet] 50 mg PO Q8 12/14/17 History of Present Illness History of Present Illness: MOI SANCHEZ JR is a 87 year old male whowas brought to the emergency room by his son apparently after having a syncopal episode while he was at the [facility]. Patient denied any dizziness, nausea, vomiting diaphoresis, chest pain, palpitations or any other pertinent symptoms. Patient and his son are pretty poor historians. They denied any known history of a prior anemia and denied any known history of GI malignancy. He apparently does have a history of prostate cancer. He also had a colonoscopy about 4 years ago and it was negative. There is no history of bloody stool, abdominal pain, weight loss, vomiting blood or any other pertinent symptoms. Patient was found to have a hemoglobin of 6.7 in the emergency room and stool guaiac done was negative. Also had some significant disease with MCV of 57. Platelet count is at 531 which was suggest iron deficiency anemia. Patient was admitted under the hospitalist service for further management Hospital Course Hospital Course: Patient received a total of 2 units of packed red blood cells with further improvement of anemia which was deemed to be due to iron deficiency. Initial syncopal episode was secondary to profound anemia Antihypertensive outpatient regimen was restarted with further improvement of blood pressure however opted to discontinue lisinopril at the time of discharge. Patient was seen by Dr. Merino due to history of prostate cancer and liver masses. He underwent liver biopsy on December 19. At the time of discharge pathology report is still pending but will be followed up by Dr. Merino. 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 Since patient had achieved maximum benefit of hospitalization stay prompted to discharge. Physical Exam Vital Signs: Temp Pulse Resp BP Pulse Ox 98.8 F 97 13 121/67 97 12/20/17 21:19 12/20/17 21:19 12/20/17 21:19 12/20/17 21:19 12/20/17 21:19 Intake & Output 12/20/17 12/21/17 12/22/17 06:59 06:59 06:59 Intake Total 10 200 Balance 10 200 Weight 76.9 kg General appearance: PRESENT: cooperative, thin Head exam: PRESENT: atraumatic, normocephalic Eye exam: PRESENT: conjunctiva pink, EOMI, PERRLA Ear exam: PRESENT: normal external ear exam Neck exam: PRESENT: full ROM. ABSENT: JVD, lymphadenopathy, tenderness Respiratory exam: PRESENT: clear to auscultation le Cardiovascular exam: PRESENT: RRR. ABSENT: diastolic murmur, systolic murmur Vascular exam: PRESENT: normal capillary refill GI/Abdominal exam: PRESENT: normal bowel sounds, soft. ABSENT: tenderness Extremities exam: PRESENT: full ROM. ABSENT: pedal edema Musculoskeletal exam: ABSENT: ambulatory Neurological exam: PRESENT: alert, awake, oriented to person Psychiatric exam: PRESENT: depressed Skin exam: PRESENT: normal color Results Laboratory Results: 12/19/17 04:59 12/18/17 05:41 Impressions: Head CT 12/14/17 15:34 IMPRESSION: MILD CHRONIC MICROVASCULAR ISCHEMIA. NO ACUTE IMAGING FINDINGS IN THE BRAIN. EVIDENCE OF ACUTE STROKE: NO. Abdomen/Pelvis CT 12/15/17 00:00 IMPRESSION: 1. Findings in the lower chest as described. 2. Hepatic masses. 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 3. Small nonspecific mesenteric lymph nodes. 4. Prominent left inguinal hernia containing a loop of sigmoid colon. Guidance Needle Placement CT 12/19/17 00:00 IMPRESSION: CT GUIDED RIGHT LOBE LIVER MASS BIOPSY PERFORMED ABOVE. PATHOLOGY PENDING. NO IMMEDIATE COMPLICATIONS. AN ASPIRATED FLUID WAS ALSO SENT FOR GRAM STAIN CULTURE AND SENSITIVITY. IV CONSCIOUS SEDATION Liver Biopsy CT 12/19/17 06:00 IMPRESSION: CT GUIDED RIGHT LOBE LIVER MASS BIOPSY PERFORMED ABOVE. PATHOLOGY PENDING. NO IMMEDIATE COMPLICATIONS. AN ASPIRATED FLUID WAS ALSO SENT FOR GRAM STAIN CULTURE AND SENSITIVITY. IV CONSCIOUS SEDATION Qualifiers - * PATEINT BEING DISCHARGED WITH ANY OF THE FOLLOWING DIAGNOSIS?: No Plan Discharge Plan: Home with hospice Time Spent: Less than 30 Minutes
== END 2017-12-20 21:10 | disposition hospice, home (50) | DRG 436 ==
LOC: ER 14:51 → EH 18:24 → 4S 21:19
PROVIDERS: ADMIT Internal Medicine; ATTEND Internal Medicine
PROC: 30233N1 Transfusion of Nonautologous Red Blood Cells into Peripheral Vein, Percutaneous Approach (ICD-10-PCS; 2017-12-14)
PROC: 0FB03ZX Excision of Liver, Percutaneous Approach, Diagnostic (ICD-10-PCS; principal; 2017-12-19)
DX: C78.7 Secondary malignant neoplasm of liver and intrahepatic bile duct (principal); C18.9 Malignant neoplasm of colon, unspecified; D50.9 Iron deficiency anemia, unspecified; I10 Essential (primary) hypertension; Z66 Do not resuscitate; F32.9 Major depressive disorder, single episode, unspecified; G30.9 Alzheimer's disease, unspecified; F02.80 Dementia in other diseases classified elsewhere, unspecified severity, without behavioral disturbance, psychotic disturbance, mood disturbance, and anxiety; M19.90 Unspecified osteoarthritis, unspecified site; E87.6 Hypokalemia; Z79.899 Other long term (current) drug therapy; Z85.46 Personal history of malignant neoplasm of prostate; Z87.891 Personal history of nicotine dependence; Z83.3 Family history of diabetes mellitus; Z82.49 Family history of ischemic heart disease and other diseases of the circulatory system
CPT/HCPCS: 36415; 36430; 47000; 70450; 74177; 77012; 80048; 80053; 80076; 82105; 82272; 82378; 82550; 82553; 82607; 82728; 82746; 83540; 83550; 83735; 84153; 84484; 85025; 85045; 85610; 85730; 86850; 86900; 86901; 86920; 87070; 87075; 87205; 88305; 88341; 88342; 93005; 93010; 99285; G8978-GP; G8979-GP; J1750; J2250; J3010; J3490; J7040; P9016; S0028